=== PATIENT | female | born 2000 | race Hispanic/Latino ===

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

== ENCOUNTER 2020-05-30 12:54 | Emergency (ER) | payer OTHER ==
[~2020-05-30] VITALS: Ht 162.6 cm; Wt 70.1 kg
[2020-05-30] MEDS ORDERED: COMBIVENT RESPIMAT 100-20MCG INHALER 4GM INH ONE (13:45)
--- NOTE | 2020-05-30 13:45 | REP ---
INDICATION: CHEST PAIN COMPARISON: None. TECHNIQUE: Portable AP view of the chest FINDINGS: The mediastinum and cardiac silhouette are stable and within normal limits for portable technique. The lung reece are clear without acute consolidation, effusion, or pneumothorax. Skeletal structures are intact. IMPRESSION: No acute cardiopulmonary process appreciated. <Electronically signed by Aba Bowen > 05/30/20 [id number]
[2020-05-30] MEDS ORDERED: ACETAMINOPHEN 325 MG TAB PO ONE (14:00)
[2020-05-30] MEDS ORDERED: PROAAER10 INH (14:42)
[2020-05-30 15:15] VITALS: BP 106/65
== END 2020-05-30 15:25 | disposition home or self-care (01) ==
LOC: M ED 12:54
DX: R05 Cough (principal); J02.9 Acute pharyngitis, unspecified; B34.9 Viral infection, unspecified